=== PATIENT | female | born 1980 | race Caucasian/White ===

== ENCOUNTER 2023-12-12 11:24 | Emergency (ER) | payer SELFPAY ==
[2023-12-12 11:46] VITALS: BP 118/82
[2023-12-12 12:08] LABS: Urine Albumin Negative (Neg - Trace); Urine Bilirubin Negative (Negative); Urine Character Clear (Clear); Urine Color Yellow; Urine Glucose Negative (Negative); Urine Ketone Negative (Negative); Urine Leukocyte Negative (Negative); Urine Nitrite Negative (Negative); Urine Occult Blood Negative (Negative); Urine Urobilinogen Negative (Neg - 1+); Urine pH 6.5 (5.0-9.0)
[2023-12-12 12:16] LABS: % Basophils 0.5 % (0-2); % Eosinophils 1.4 % (0-6); % Immature Granulocytes 0.5 % (0-0.5); % Lymphocytes 36.2 % (20.5-51.1); % Monocytes 6.6 % (1.7-9.3); % Neutrophils 54.8 % (42.2-75.2); Absolute Eosinophils 0.1 10^3/uL (0-0.7); Absolute Lymphocytes 2.4 10^3/uL (1.2-3.4); Absolute Monocytes 0.4 10^3/uL (0.1-0.6); Absolute Neutrophils 3.7 10^3/uL (1.4-6.5); Hematocrit 35.9 % (37.0-47.0); Hemoglobin 11.9 g/dL (12.0-16.0); Mean Corp Hgb Conc. 33.1 g/dL (33.0-37.0); Mean Corpuscular Volume 84.5 fL (81.0-99.0); Mean Platelet Volume 9.4 fL (7.4-10.4); Nucleated Red Blood Cells % 0 %; Platelet Count 359 10^3/uL (130-400); Red Blood Cell Count 4.25 10^6/uL (4.20-5.40); Red Cell Dist. Width 14.4 % (11.5-14.5); White Blood Cell Count 6.7 10^3/uL (4.8-10.8)
[2023-12-12 12:40] LABS: ALT (SGPT) 22 U/L (0-35); AST (SGOT) 29 U/L (14-36); Albumin 4.3 g/dl (3.5-5.0); Alkaline Phosphatase 61 U/L (38-126); Blood Urea Nitrogen 18 mg/dl (7-17); Carbon Dioxide 24 mmol/L (22-30); Chloride 101 mmol/L (98-107); Glucose 94 mg/dl (70-99); Potassium 4.8 mmol/L (3.5-5.1); Sodium 131 mmol/L (135-145); Total Bilirubin 0.4 mg/dl (0.2-1.3); Total Protein 7.3 g/dl (6.3-8.2); eGFR > 60.00
[2023-12-12 12:57] LABS: Lipase 122 U/L (23-300)
--- NOTE | 2023-12-12 15:21 | ED.GENMED ---
History of Present Illness
General
Chief Complaint: Abdominal Pain
Source: patient
Exam Limitations: none
Time Seen by Provider: 12/12/23 14:50
Nursing documentation reviewed up to this point in time: agreed with
Travel History
Have you had any contact with someone who has COVID-19?: No
Do you have any symptoms of coronavirus? Fever > 100 degrees, chills, cough, shortness of breath, sore throat, loss of taste or smell, muscle aches, or headache?: No
History of Present Illness
History of Present Illness:
43-year-old female with past medical history of GERD, anxiety autism presenting to the emergency department today with concerns of right lower quadrant abdominal pain worsening over the past week or so has been seen by urgent care and GI without
specific findings. Denies chest pain shortness of breath nausea vomiting fevers. Has had some loose and bowel movements.
Past History
Past History
ED Past Medical History: GERD and Other (bulimia, anxiety)
ED Past Surgical History: Tonsilectomy and Other (wisdom teeth and left shoulder)
Social History
Tobacco: Smoker
Alcohol: None
Drug: Marijuana
Personal: Single
Living: with family
Employment: Employed
Review of Systems
Review of Systems
Allergies reviewed?: Yes
All Other Systems: ROS reviewed and negative except as documented in HPI and ROS
Phy Exam
Physical Exam
Physical Exam:
GENERAL: Alert , in no apparent distress
EYE: pupils equal and reactive
NECK: Supple, no significant adenopathy.
ENT: o/p clr, mmm.
CARDIAC: Regular rate and rhythm .
LUNGS: Clear breath sounds bilaterally, no acute respiratory distress, no wheezes/rales/rhonchi
ABDOMEN: Right lower quadrant abdominal pain suprapubic abdominal pain and no significant upper abdominal pain no flank pain no CVA tenderness.
NEUROLOGICAL: Alert and oriented, no focal neuro deficits
SKIN: Warm and dry, skin intact.
MUSCULOSKELETAL: No edema, well perfused.
PSYCH: Normal and appropriate interaction.
Course
Orders/Labs/Results
Orders:
Orders
12/12/23 11:58
Complete Blood Count/With Diff Urgent
Comprehensive Metabolic Panel Urgent
Lipase Urgent
Urinalysis Reflex To Culture Urgent
Date Specimen was Collected: 12/12/23
Time Specimen was Collected: 11:47
12/12/23 15:13
CT Abd/Pel (IV only)-DH only Urgent
Comment:
Reason For Exam: rlq pain
12/12/23 15:30
Add On- LAB Urgent
Tests Added?: urine preg qualitative
12/12/23 15:47
HCG, Urine Qualitative Screen Urgent
Date Specimen was Collected: 12/12/23
Time Specimen was Collected: 11:47
Comment: ADD ON
12/12/23 17:26
Dicyclomine HCl [Bentyl] 20 mg IM NOW STA
Ketorolac [Toradol] 15 mg IV NOW STA
Abnormal Lab Results
12/12/23
11:58
Hgb 11.9 L g/dL
(12.0-16.0)
Hct 35.9 L %
(37.0-47.0)
Sodium 131 L mmol/L
(135-145)
BUN 18 H mg/dl
(7-17)
12/12/23 11:58
12/12/23 11:58
Vital Signs
Initial and Last Documented VS:
Initial Vital Signs
Temp Pulse Resp BP Pulse Ox
98.4 F 78 16 118/82 100
12/12/23 11:46 12/12/23 11:46 12/12/23 11:46 12/12/23 11:46 12/12/23 11:46
Last Documented Vital Signs
Temp Pulse Resp BP Pulse Ox
98.4 F 63 16 118/72 100
12/12/23 11:46 12/12/23 19:06 12/12/23 17:43 12/12/23 19:06 12/12/23 17:43
MDM/Problems Addressed
MDM/Problems Addressed:
43-year-old female presenting to the emergency department today with concerns of worsening right-sided abdominal pain over the past week with associated infrequent loose bowel movements. No fevers no nausea vomiting. Does have reproducible
tenderness to the suprapubic region and right lower quadrant. Plan for CT scan concerning the patient's ongoing worsening symptoms. CT scan showing large amount of stool but is consistent with constipation. No emergent findings otherwise patient
was advised for bowel regimen otherwise stable for outpatient management and GI follow-up. Return precautions given.
*Critical Care Note
Total Time (30-74mins, 75-104mins- exclusive of procedures): Not Applicable
ED Attending Note
-
Portions of this chart may have been created with voice recognition software.� Occasional wrong word or��sound alike� substitutions may have occurred due to the inherent limitations of voice recognition software.
Discharge Plan
Departure
Patient Disposition: Home (Routine Discharge)
Date of Disposition: 12/12/23
Time of Disposition: 18:53
Patient with high blood pressure during this ER visit?: No
Condition: Good
Covid-19: Not Applicable
Discharge Problem:
Abdominal pain
Instructions: Constipation, Adult (DC), Abdominal Pain
Prescriptions:
New
magnesium citrate Solution
300 ml PO ONCE Qty: 296 0RF
docusate sodium [Colace] 100 mg capsule
100 mg PO DAILY Qty: 20 0RF
No Action
omeprazole 40 MG capsule,delayed release(DR/EC)
40 mg PO DAILY
calcium carbonate [Antacid (calcium carbonate)] 1 TABLET tablet,chewable
2 tab PO Q4HPRN PRN (Reason: indigestion)
valacyclovir [Valtrex] 1 gram Tablet
1,000 mg PO DAILY
fluoxetine 20 mg Tablet
60 mg PO DAILY
fexofenadine-pseudoephedrine [Marilee-D 24 Hour] 180-240 mg Tablet Extended Release 24 Hr
1 tab PO DAILY
drospirenone-ethinyl estradiol [Vestura (28)] 3-0.02 mg Tablet
1 tab PO DAILY
Referrals:
Johnnie Mcginnis MD [Active] - Follow up in 5-7 days
Doron Chandra MD [Family Provider] -
Activity Restrictions/Additional Instructions:
You came to the emergency department today with concerns of abdominal discomfort. Here you had a reassuring evaluation without emergent findings your CT scan did not show any emergent findings but did show large amount of stool which could be
causing your discomfort. Please use the bowel regiment as discussed. Please use the magnesium citrate and then he can use ongoing Colace as well as Metamucil. You can use MiraLAX once daily as well as needed. Please help closely with GI. Return
to the emergency department for any worsening, new or concerning symptoms.
Interventions
Interventions:
*Risk Screen - Suicide Last Done: 12/12/23 11:43
*General Assessment Last Done: 12/12/23 11:43
*Neglect/Abuse Screening Last Done: 12/12/23 11:43
ED- Fall Risk Assessment Last Done: 12/12/23 17:43
*Nursing Disposition Last Done: 12/12/23 19:06
OX-Eeuxcp-Bpexeairbs Assessment Last Done: 12/12/23 17:43
Discharge Date and Time
Discharge Date/Time: 12/12/23 19:07
Print Language: GREENLANDIC
[2023-12-12 16:04] LABS: HCG, Urine Qualitative Screen Negative
[2023-12-12] MEDS: BENTYL 20 MG IM (17:38)
[2023-12-12] MEDS: TORADOL 15 MG IV (17:39)
[2023-12-12 17:43] VITALS: BP 128/84; BMI 25.4
[2023-12-12 19:05] VITALS: BP 118/72
[2023-12-12 19:06] VITALS: BP 118/72
== END 2023-12-12 19:07 | disposition home or self-care (01) ==
LOC: EMR 11:24
PROVIDERS: Student in an Organized Health Care Education/Training Program; EMERGENCY PHYSICIAN Emergency Medicine; FAMILY PHYSICIAN Family Medicine
DX: R10.31 Right lower quadrant pain (principal); K21.9 Gastro-esophageal reflux disease without esophagitis; R19.4 Change in bowel habit; F41.9 Anxiety disorder, unspecified; F84.0 Autistic disorder; D50.9 Iron deficiency anemia, unspecified; F50.2 Bulimia nervosa; R01.1 Cardiac murmur, unspecified; F17.210 Nicotine dependence, cigarettes, uncomplicated; Z88.2 Allergy status to sulfonamides
CPT/HCPCS: 99284; 96372; 96374; 74177; 80053; 81003; 81025; 83690; 85025; Q9967

== ENCOUNTER → 2024-01-23 06:36 | Day surgery (SDC) | payer OTHER, SELFPAY | LOC: GI 06:36 | PROVIDERS: ATTENDING PHYSICIAN Internal Medicine Gastroenterology | DX: K59.04 Chronic idiopathic constipation (principal); K64.8 Other hemorrhoids | CPT/HCPCS: 45378 ==

== ENCOUNTER 2024-04-20 06:38 | Day surgery (SDC) | payer OTHER, SELFPAY ==
[2024-04-20] VITALS (12 sets, daily range): BP systolic 100–132; BP diastolic 63–89; BMI 24.7
[2024-04-20] MEDS: TYLENOL 1000 MG PO (11:37)
[2024-04-20] MEDS: NORMOSOL-R/PLASMALYTE-A 1000 IV (11:37)
[2024-04-20] MEDS: MOBIC 15 MG PO (11:37)
[2024-04-20] MEDS: DILAUDID 0.5 MG IV ×5 (15:12→16:07)
[2024-04-20] MEDS: TORADOL 15 MG IV (16:09)
--- NOTE | 2024-04-20 16:49 | PTCARENOTE ---
Pt brought to [facility]. Pt tearful, repositioned for comfort. Pt writhing around in stretcher, complaining of pain. LICENSED ARCHITECT reached out to Dr. Ware, and Juanito. Pt tolerating PO at this time, calmer, pt's boyfriend at bedside, belongings with pt.
[2024-04-20] MEDS: ROXICODONE 5 MG PO (16:51)
[2024-04-20] MEDS: ZOFRAN 4 MG IV (17:19)
== END 2024-04-20 17:49 | disposition home or self-care (01) ==
LOC: SDS 06:38
PROVIDERS: ATTENDING PHYSICIAN Specialist
DX: S76.112A Strain of left quadriceps muscle, fascia and tendon, initial encounter (principal); X58.XXXA Exposure to other specified factors, initial encounter
CPT/HCPCS: 27385

== ENCOUNTER → 2024-07-17 13:36 | Outpatient (REF) | payer OTHER, SELFPAY | LOC: HWRAD 13:36 | PROVIDERS: ATTENDING PHYSICIAN Physician Assistant Medical; FAMILY PHYSICIAN Nurse Practitioner Adult Health | DX: R31.9 Hematuria, unspecified (principal); R10.9 Unspecified abdominal pain | CPT/HCPCS: 74176 ==

== ENCOUNTER → 2024-11-27 12:38 | Outpatient (REF) | payer OTHER, SELFPAY | LOC: PAVMRI 12:38 | PROVIDERS: ATTENDING PHYSICIAN Student in an Organized Health Care Education/Training Program; FAMILY PHYSICIAN Family Medicine | DX: M62.81 Muscle weakness (generalized) (principal); M54.50 Low back pain, unspecified; M51.362 Other intervertebral disc degeneration, lumbar region with discogenic back pain and lower extremity pain; M54.16 Radiculopathy, lumbar region; M47.816 Spondylosis without myelopathy or radiculopathy, lumbar region | CPT/HCPCS: 72148 ==

== ENCOUNTER → 2025-03-26 10:22 | Outpatient (REF) | payer OTHER, SELFPAY | LOC: MRI 3T 10:22 | PROVIDERS: ATTENDING PHYSICIAN Student in an Organized Health Care Education/Training Program; FAMILY PHYSICIAN Registered Nurse | DX: M54.2 Cervicalgia (principal); M54.6 Pain in thoracic spine | CPT/HCPCS: 72146 ==

== ENCOUNTER 2025-06-07 06:31 | Day surgery (SDC) | payer OTHER, SELFPAY | END 2025-06-07 15:05 | disposition home or self-care (01) | LOC: GI 06:31 | PROVIDERS: ATTENDING PHYSICIAN Internal Medicine Gastroenterology | DX: R10.10 Upper abdominal pain, unspecified (principal); K44.9 Diaphragmatic hernia without obstruction or gangrene; K22.89 Other specified disease of esophagus; K29.70 Gastritis, unspecified, without bleeding; K21.00 Gastro-esophageal reflux disease with esophagitis, without bleeding | CPT/HCPCS: 43239; 88305; 88342 ==

== ENCOUNTER → 2025-06-24 18:41 | Outpatient (REF) | payer OTHER, SELFPAY | LOC: RAD 18:41 | PROVIDERS: ATTENDING PHYSICIAN Internal Medicine Gastroenterology; FAMILY PHYSICIAN Family Medicine | DX: K59.00 Constipation, unspecified (principal) | CPT/HCPCS: 74018 ==

== ENCOUNTER → 2025-07-15 10:15 | Outpatient (REF) | payer OTHER, SELFPAY | LOC: RAD 10:15 | PROVIDERS: ATTENDING PHYSICIAN Surgery; FAMILY PHYSICIAN Family Medicine; OTHER PHYSICIAN Thoracic Surgery (Cardiothoracic Vascular Surgery) | DX: K44.9 Diaphragmatic hernia without obstruction or gangrene (principal); K21.9 Gastro-esophageal reflux disease without esophagitis | CPT/HCPCS: 74246 ==